=== PATIENT | male | born 1970 | race Asian ===

== ENCOUNTER 2019-03-19 20:37 | Inpatient (IN) | payer MEDICAID, OTHER ==
[~2019-03-19] VITALS: Ht 165.1 cm; Wt 75.6 kg
[2019-03-19] MEDS ORDERED: furosemide 10 MG/1 ML 10ml inj IV STA (20:49)
[2019-03-19] MEDS ORDERED: nitroGLYCERIN-Tridil 50MG/D5W 250 ML IV PRN (20:50)
--- NOTE | 2019-03-19 20:53 | NUR ---
RT present and placing him on bipap
[2019-03-19] MEDS ORDERED: LORazepam 2 mg/ml vial IV ONE (20:55)
[2019-03-19] MEDS ORDERED: furosemide 10 MG/1 ML 10ml inj IV ONE (21:00)
--- NOTE | 2019-03-19 21:02 | NUR ---
pt very anxious, pulling at the mask, MD ordered ativan. It was just given. telling him to relax. He is very paniking.
[2019-03-19] MEDS ORDERED: NO HOME MEDS (21:06)
[2019-03-19] MEDS ORDERED: albuterol 2.5 MG/3 ML nebule NEB STA (21:07)
[2019-03-19] MEDS ORDERED: ipratropium 0.5 MG/2.5ML nebule IH STA (21:07)
[2019-03-19] MEDS ORDERED: morphine 4 MG/ML inj SYRINge IV STA (21:07)
--- NOTE | 2019-03-19 21:08 | NUR ---
NTG increased to 60mcg/min per Dr Garber order at BS. Ordered Morphine 4 mg IV stat per Dr Garber VO and ordered a duoneb for RT stat.
--- NOTE | 2019-03-19 21:11 | NUR ---
at , she is holding his right hand so that he doesn't pull off his mask.
--- NOTE | 2019-03-19 21:13 | NUR ---
sticker oxygen sat placed as he kept moving and the clip on one kept falling off.
[2019-03-19 21:14] LABS: PARTIAL THROMBOPLASTIN TIME 31 SECONDS (22-32)
[2019-03-19 21:15] LABS: BASOPHILS % (AUTO) 0.1 % (0-1); EOSINOPHILS % (AUTO) 0.1 % (0-6); HEMATOCRIT 42.5 % (42.0-52.0); HEMOGLOBIN 14.7 g/dl (14.0-17.9); LYMPHOCYTES % (AUTO) 6.7 % (21-51); MEAN CORPUSCULAR HEMOGLOBIN 30.4 PG (27.0-31.0); MEAN CORPUSCULAR HGB CONC 34.5 g/dL (33.0-36.5); MEAN CORPUSCULAR VOLUME 88.1 FL (78-98); MEAN PLATELET VOLUME 7.3 FL (7.4-10.4); MONOCYTES # (AUTO) 1.4 X10'3 (0-0.9); MONOCYTES % (AUTO) 9.7 % (2-12); NEUTROPHILS % (AUTO) 83.4 % (42-75); PLATELET COUNT 469 X10'3 (140-440); RED BLOOD COUNT 4.82 X10'6 (4.70-6.10); RED CELL DISTRIBUTION WIDTH 13.1 % (11.5-14.5); WHITE BLOOD COUNT 14.4 X10'3 (4.5-11.0)
[2019-03-19 21:31] LABS: ALANINE AMINOTRANSFERASE 71 U/L (12-78); ALBUMIN 3.1 G/DL (3.4-5.0); ALBUMIN/GLOBULIN RATIO 0.7 (1.1-1.5); ALKALINE PHOSPHATASE 84 IU/L (46-116); ANION GAP 18 (8-16); ASPARTATE AMINO TRANSFERASE 56 U/L (10-37); BILIRUBIN,TOTAL 1.6 MG/DL (0.1-1.0); BLOOD UREA NITROGEN 6 MG/DL (7-18); BUN/CREATININE RATIO 7.1 (5.4-32.0); CALCIUM 8.3 MG/DL (8.5-10.1); CHLORIDE 79 MMOL/L (99-107); CREATININE 0.84 MG/DL (0.60-1.10); GLUCOSE 163 MG/DL (70-104); POTASSIUM 3.3 MMOL/L (3.5-5.1); TOTAL CARBON DIOXIDE 16.6 MMOL/L (24-32); TOTAL PROTEIN 7.4 G/DL (6.4-8.2); eGFR > 90 ML/MIN
[2019-03-19 21:35] LABS: SODIUM 114 MMOL/L (135-145)
[2019-03-19 21:43] LABS: MAGNESIUM 1.8 MG/DL (1.5-2.4)
[2019-03-19 22:14] LABS: CLARITY,URINE CLEAR (Clear); COLOR,URINE YELLOW (Yellow); GLUCOSE, URINE 100 mg/dl (Neg); KETONES,URINE >=80 mg/dl (Neg); LEUKOCYTE ESTERASE ,URINE NEGATIVE (Neg); NITRITES, URINE NEGATIVE (Neg); OCCULT BLOOD,URINE SMALL (Neg); PROTEIN,URINE 100 mg/dl (Neg)
[2019-03-19 22:15] LABS: UA COLLECTION TYPE FOLEY CATH
--- NOTE | 2019-03-19 22:16 | NUR ---
550ml output barrios catheter post 1 hour tata
[2019-03-19] MEDS ORDERED: acetaminophen 325mg tablet PO PRN (22:45)
[2019-03-19] MEDS ORDERED: mag hydrox/Alum hydrox/simeth 30ml oral suspension PO PRN (22:45)
[2019-03-19] MEDS ORDERED: ondansetron/PF 4mg/2ml inj IV PRN (22:45)
[2019-03-19] MEDS ORDERED: magnesium hydroxide 30ml (MOM) UD suspension PO PRN (22:45)
[2019-03-19] MEDS ORDERED: LORazepam 2 mg/ml vial IV PRN (22:50)
[2019-03-19] MEDS ORDERED: lisinopril 10 MG tablet PO ONE (22:50)
[2019-03-19] MEDS ORDERED: insulin Lispro (HumaLOG) vial - multi-dose SQ SCH (22:55)
[2019-03-19] MEDS ORDERED: dextrose 50%-water 50ml dispensing syringe IV PRN ×2 (22:55)
[2019-03-19] MEDS ORDERED: MESSAGE TO PHARMACY PO ONE (22:55)
[2019-03-19] MEDS ORDERED: glucagon, human recombinant 1mg kit SUBCUT PRN (22:55)
[2019-03-19] MEDS ORDERED: dextrose ORAL solution 15 GM/59 ML bottle PO PRN ×2 (22:55)
[2019-03-19 23:00] LABS: RBC,URINE 0-2 /HPF (0-2); WBC,URINE 0-4 /HPF (0-4)
[2019-03-19 23:01] LABS: BACTERIA,URINE NONE SEEN /HPF (Neg); FINE GRANULAR CAST 0-3 /LPF (NEGATIVE); MUCUS STRANDS FEW /LPF (Neg); SQUAMOUS EPITHELIAL CELL,UR NONE SEEN /LPF (FEW); TRANSITIONAL EPI CELLS,URINE MODERATE /HPF
[2019-03-19 23:10] VITALS: BP 151/116
[2019-03-19 23:46] LABS: ABG BASE EXCESS -5.9 mmol/L (-2.0-3.0); ABG HCO3 18.4 mmol/L (22.0-26.0); ABG OXYGEN SATURATION 90.7 % (95-98); ABG PCO2 (T) 32.5 mmHg (35.0-45.0); ABG PO2 (T) 61.5 mmHg (83-108); ALLEN'S TEST Positive; FCOHb 0.2 % (0.5-1.5); FLOW 6 L/min; FMetHb 0.2 % (0.3-1.12); FO2Hb 90.3 % (94-100); PATIENT TEMPERATURE 36.7; RESPIRATORY RATE (OBSERVED) 26 b/min; TOTAL HEMOGLOBIN 14.5 G/dl (14.0-17.9)
[2019-03-20] VITALS (17 sets, daily range): BP systolic 108–177; BP diastolic 66–106
[2019-03-20 00:09] LABS: HEMOGLOBIN A1C 8.4 % (4.5-6.2)
[2019-03-20 00:13] LABS: ALANINE AMINOTRANSFERASE 68 U/L (12-78); ALBUMIN 2.8 G/DL (3.4-5.0); ALBUMIN/GLOBULIN RATIO 0.7 (1.1-1.5); ALKALINE PHOSPHATASE 75 IU/L (46-116); ANION GAP 12 (8-16); ASPARTATE AMINO TRANSFERASE 51 U/L (10-37); BILIRUBIN,TOTAL 1.4 MG/DL (0.1-1.0); BLOOD UREA NITROGEN 7 MG/DL (7-18); BUN/CREATININE RATIO 7.5 (5.4-32.0); CALCIUM 7.5 MG/DL (8.5-10.1); CHLORIDE 82 MMOL/L (99-107); CREATININE 0.93 MG/DL (0.60-1.10); GLUCOSE 165 MG/DL (70-104); POTASSIUM 3.5 MMOL/L (3.5-5.1); TOTAL CARBON DIOXIDE 21.3 MMOL/L (24-32); TOTAL PROTEIN 6.9 G/DL (6.4-8.2); eGFR 86 ML/MIN
[2019-03-20 00:16] LABS: SODIUM 115 MMOL/L (135-145)
[2019-03-20 03:07] LABS: BASOPHILS % (AUTO) 0.1 % (0-1); EOSINOPHILS % (AUTO) 0.1 % (0-6); HEMATOCRIT 39.3 % (42.0-52.0); HEMOGLOBIN 13.7 g/dl (14.0-17.9); LYMPHOCYTES % (AUTO) 8.1 % (21-51); MEAN CORPUSCULAR HEMOGLOBIN 30.7 PG (27.0-31.0); MEAN CORPUSCULAR HGB CONC 34.8 g/dL (33.0-36.5); MEAN CORPUSCULAR VOLUME 88.2 FL (78-98); MEAN PLATELET VOLUME 7.1 FL (7.4-10.4); MONOCYTES # (AUTO) 1.2 X10'3 (0-0.9); MONOCYTES % (AUTO) 10.4 % (2-12); NEUTROPHILS # (AUTO) 9.7 X10'3 (1.8-7.7); NEUTROPHILS % (AUTO) 81.3 % (42-75); PLATELET COUNT 369 X10'3 (140-440); RED BLOOD COUNT 4.45 X10'6 (4.70-6.10); RED CELL DISTRIBUTION WIDTH 13.2 % (11.5-14.5); WHITE BLOOD COUNT 11.9 X10'3 (4.5-11.0)
[2019-03-20 03:25] LABS: ALANINE AMINOTRANSFERASE 61 U/L (12-78); ALBUMIN 2.6 G/DL (3.4-5.0); ALBUMIN/GLOBULIN RATIO 0.7 (1.1-1.5); ALKALINE PHOSPHATASE 69 IU/L (46-116); ANION GAP 9 (8-16); ASPARTATE AMINO TRANSFERASE 42 U/L (10-37); BILIRUBIN,TOTAL 1.3 MG/DL (0.1-1.0); BLOOD UREA NITROGEN 7 MG/DL (7-18); CALCIUM 7.6 MG/DL (8.5-10.1); CHLORIDE 86 MMOL/L (99-107); CHOL/HDL RATIO 4.1 (0.00-4.99); CHOLESTEROL 161 MG/DL (0-200); CREATININE 0.87 MG/DL (0.60-1.10); GLUCOSE 126 MG/DL (70-104); HDL CHOLESTEROL 39 MG/DL (35-60); LDL CHOLESTEROL 107 MG/DL (50-100); POTASSIUM 3.6 MMOL/L (3.5-5.1); TOTAL PROTEIN 6.4 G/DL (6.4-8.2); TRIGLYCERIDES 48 MG/DL (20-135); eGFR > 90 ML/MIN
[2019-03-20 03:27] LABS: SODIUM 119 MMOL/L (135-145)
--- NOTE | 2019-03-20 04:25 | NUR ---
[place] Medication Administration: For this medication-pass time frame, all medication were reviewed, dispensed, administered and documented per hospital policy by Arminda DAVIS. [facility] documentation: I have reviewed all interventions, assessments performed and documented by Arminda DAVIS.
--- NOTE | 2019-03-20 04:25 | NUR ---
Student documentation: I have reviewed and agree with all interventions, assessments performed and documented by Lynette FUNES. Student Medication Administration: For this medication-pass time frame, all medication were reviewed, dispensed, administered and documented per hospital policy by Lynette FUNES.
--- NOTE | 2019-03-20 06:07 | NUR ---
Problems reprioritized. Patient report given, questions answered & plan of care reviewed with Sherron DAVIS.
--- NOTE | 2019-03-20 07:08 | NUR ---
Patient in room PCU 3023. I have received report from SUSAN TRUONG and had the opportunity to ask questions and assume patient care.
[2019-03-20] MEDS ORDERED: furosemide 10 MG/1 ML 10ml inj IV SCH (08:00)
[2019-03-20] MEDS ORDERED: heparin, porcine 5000 units/ml vial SQ SCH (08:00)
[2019-03-20] MEDS: carvedilol 6.25mg tablet PO SCH ×2 (08:03→20:06)
[2019-03-20] MEDS ORDERED: pneumococcal 23-VAL P-sac vacc 25 mcg/0.5ml vial IMVAC ONE (10:00)
[2019-03-20] MEDS ORDERED: potassium Cl 20 mEq SR tablet PO PRN (10:50)
[2019-03-20] MEDS ORDERED: potassium CL 10mEq/100ml bag 100 ML IV PRN (10:50)
[2019-03-20] MEDS ORDERED: magnesium Cl slow-release 64mg tablet PO PRN (10:50)
[2019-03-20] MEDS ORDERED: magnesium 4gm in 100ml NS 100 ML IV PRN (10:50)
[2019-03-20] MEDS ORDERED: heparin 10,000 units/1 ML INJ IV PRN (11:00)
[2019-03-20] MEDS ORDERED: heparin 10,000 units/1 ML INJ IV ONE (11:00)
--- NOTE | 2019-03-20 11:02 | NUR ---
PAGED DR JENKINS promotional table spacer PAGER ID: [phone] MESSAGE: SHERRON PCU [id number] HAS HAD 2600ML URINE OUT THIS SHIFT. DO YOU WANT LASIX GTT? Addendum: 03/20/19 at 1104 by Sherron Dsouza RN PER DR JENKINS DO START LASIX GTT
[2019-03-20 12:00] LABS: BASOPHILS % (AUTO) 0.1 % (0-1); EOSINOPHILS % (AUTO) 0.1 % (0-6); HEMATOCRIT 39.4 % (42.0-52.0); HEMOGLOBIN 13.6 g/dl (14.0-17.9); LYMPHOCYTES # (AUTO) 0.6 X10'3 (1.1-4.8); LYMPHOCYTES % (AUTO) 4.6 % (21-51); MEAN CORPUSCULAR HEMOGLOBIN 30.5 PG (27.0-31.0); MEAN CORPUSCULAR HGB CONC 34.5 g/dL (33.0-36.5); MEAN CORPUSCULAR VOLUME 88.4 FL (78-98); MEAN PLATELET VOLUME 7.2 FL (7.4-10.4); MONOCYTES % (AUTO) 7.7 % (2-12); NEUTROPHILS # (AUTO) 10.8 X10'3 (1.8-7.7); NEUTROPHILS % (AUTO) 87.5 % (42-75); PLATELET COUNT 390 X10'3 (140-440); RED BLOOD COUNT 4.46 X10'6 (4.70-6.10); RED CELL DISTRIBUTION WIDTH 13.4 % (11.5-14.5); WHITE BLOOD COUNT 12.3 X10'3 (4.5-11.0)
[2019-03-20 12:01] LABS: PARTIAL THROMBOPLASTIN TIME 32 SECONDS (22-32)
[2019-03-20] MEDS: furosemide inj 100 MG in normal saline 100ml IV soln 90 ML IV SCH ×2 (12:07→20:06)
[2019-03-20] MEDS: heparin 25,000 UNIT/250ml bag 250 ML IV SCH ×2 (12:29→20:11)
--- NOTE | 2019-03-20 12:31 | NUR ---
DM consult: Pt with T2DM with A1c 8.4. Per PMH pt refuses to take DM medications. No past A1c lab to assess for changes at this time. BG 163 on admit, currently on glycemic protocol. Pt currently A/O x 3 and fatigued, would benefit from DM education prior to discharge once more stable. Pt with low serum Na 119 up from 114 at admit. Will continue to follow. Addendum: 03/20/19 at [address] Amended: Links added.
[2019-03-20] MEDS ORDERED: dicyclomine 10 MG capsule PO PRN (12:50)
[2019-03-20] MEDS ORDERED: loperamide 2mg capsule PO PRN (12:50)
[2019-03-20] MEDS ORDERED: mag hydrox/Alum hydrox/simeth 30ml oral suspension PO PRN (12:50)
[2019-03-20] MEDS ORDERED: thiamine inj. 100 MG in normal saline 100ml IV soln 100 ML IV ONE (12:50)
[2019-03-20] MEDS ORDERED: LORazepam 2 mg/ml vial IV PRN (12:50)
[2019-03-20] MEDS ORDERED: haloperidol lactate 5mg/ml inj IM PRN (12:50)
[2019-03-20] MEDS ORDERED: LORazepam 1 MG tablet PO PRN (12:50)
[2019-03-20] MEDS ORDERED: haloperidol 5mg tablet PO PRN (12:50)
[2019-03-20 13:27] LABS: URINE AMPHETAMINE SCREEN NEGATIVE (Neg); URINE BARBITUATE SCREEN NEGATIVE (Neg); URINE BENZODIAZEPINES SCREEN NEGATIVE (Neg); URINE CANNABINOID SCREEN NEGATIVE (Neg); URINE COCAINE SCREEN NEGATIVE (Neg); URINE METHADONE SCREEN NEGATIVE (Neg); URINE OPIATE SCREEN NEGATIVE (Neg); URINE PHENCYCLIDINE SCREEN NEGATIVE (Neg)
[2019-03-20] MEDS: scopolamine 1.5mg patch.TD72 TD SCH (13:45)
[2019-03-20] MEDS ORDERED: iohexol 300mg/ml 100ml inj. ONE (14:39)
[2019-03-20 15:20] LABS: HIV ANTIBODY 1&2 RAPID NON-REACTIVE (Neg)
--- NOTE | 2019-03-20 17:02 | NUR ---
PAGED DR JENKINS PAGER ID: [phone] MESSAGE: ALICE LAMB [id number] HAVE RESULTED
--- NOTE | 2019-03-20 18:49 | NUR ---
Problems reprioritized. Patient report given, questions answered & plan of care reviewed with SUSAN AARON AND SUSAN TRUONG.
--- NOTE | 2019-03-20 19:07 | NUR ---
Patient in room PCU 3023. I have received report from SUSAN Siu and had the opportunity to ask questions and assume patient care. Vital signs are stable at this time. Patient is awake in no apparent distress.
[2019-03-20] MEDS: levoFLOXACIN-Levaquin 750MG/D5 150 ML IV SCH (19:48)
[2019-03-20 20:56] LABS: ALBUMIN 2.3 G/DL (3.4-5.0); ANION GAP 10 (8-16); BLOOD UREA NITROGEN 7 MG/DL (7-18); BUN/CREATININE RATIO 7.9 (5.4-32.0); CHLORIDE 91 MMOL/L (99-107); CREATININE 0.89 MG/DL (0.60-1.10); GLUCOSE 155 MG/DL (70-104); MAGNESIUM 1.6 MG/DL (1.5-2.4); SODIUM 129 MMOL/L (135-145); TOTAL CARBON DIOXIDE 27.9 MMOL/L (24-32); eGFR 90 ML/MIN
[2019-03-20] MEDS: insulin glargine (Lantus) pen - multi-dose SQ SCH (21:00)
[2019-03-20 21:01] LABS: POTASSIUM 2.6 MMOL/L (3.5-5.1)
[2019-03-20] MEDS: potassium Cl 20 mEq SR tablet PO PRN (21:08)
[2019-03-21] VITALS (11 sets, daily range): BP systolic 100–120; BP diastolic 59–87
[2019-03-21] MEDS: potassium Cl 20 mEq SR tablet PO PRN ×5 (01:04→23:34)
[2019-03-21 02:24] LABS: BASOPHILS % (AUTO) 0.3 % (0-1); EOSINOPHILS % (AUTO) 0.4 % (0-6); HEMATOCRIT 36.7 % (42.0-52.0); HEMOGLOBIN 12.9 g/dl (14.0-17.9); LYMPHOCYTES # (AUTO) 1.2 X10'3 (1.1-4.8); LYMPHOCYTES % (AUTO) 13.1 % (21-51); MEAN CORPUSCULAR HEMOGLOBIN 30.8 PG (27.0-31.0); MEAN CORPUSCULAR HGB CONC 35.1 g/dL (33.0-36.5); MEAN CORPUSCULAR VOLUME 87.8 FL (78-98); MONOCYTES # (AUTO) 1.2 X10'3 (0-0.9); MONOCYTES % (AUTO) 13.2 % (2-12); NEUTROPHILS # (AUTO) 6.9 X10'3 (1.8-7.7); PLATELET COUNT 382 X10'3 (140-440); RED BLOOD COUNT 4.18 X10'6 (4.70-6.10); RED CELL DISTRIBUTION WIDTH 13.3 % (11.5-14.5); WHITE BLOOD COUNT 9.4 X10'3 (4.5-11.0)
[2019-03-21 02:34] LABS: ALANINE AMINOTRANSFERASE 49 U/L (12-78); ALBUMIN 2.3 G/DL (3.4-5.0); ALBUMIN/GLOBULIN RATIO 0.6 (1.1-1.5); ALKALINE PHOSPHATASE 59 IU/L (46-116); AMYLASE 26 U/L (25-115); ANION GAP 6 (8-16); ASPARTATE AMINO TRANSFERASE 28 U/L (10-37); BILIRUBIN,TOTAL 0.7 MG/DL (0.1-1.0); BLOOD UREA NITROGEN 8 MG/DL (7-18); BUN/CREATININE RATIO 8.8 (5.4-32.0); CALCIUM 7.8 MG/DL (8.5-10.1); CHLORIDE 94 MMOL/L (99-107); CREATININE 0.91 MG/DL (0.60-1.10); GLUCOSE 138 MG/DL (70-104); LIPASE 112 U/L (73-393); MAGNESIUM 1.6 MG/DL (1.5-2.4); PHOSPHORUS 2.9 MG/DL (2.3-4.5); SODIUM 133 MMOL/L (135-145); TOTAL CARBON DIOXIDE 32.8 MMOL/L (24-32); TOTAL PROTEIN 5.9 G/DL (6.4-8.2); eGFR 88 ML/MIN
[2019-03-21 02:43] LABS: POTASSIUM 2.7 MMOL/L (3.5-5.1)
[2019-03-21] MEDS: heparin 25,000 UNIT/250ml bag 250 ML IV SCH (03:00)
--- NOTE | 2019-03-21 06:15 | NUR ---
Patient in room PCU 3023. I have received report from Frieda DAVIS and had the opportunity to ask questions and assume patient care.
--- NOTE | 2019-03-21 06:26 | NUR ---
Problems reprioritized. Patient report given, questions answered & plan of care reviewed with Ashlyn RN & Ashlyn RN.
[2019-03-21] MEDS: furosemide inj 100 MG in normal saline 100ml IV soln 90 ML IV SCH (06:45)
--- NOTE | 2019-03-21 09:09 | NUR ---
Page sent to Dr. Red PAGER ID: [phone] MESSAGE: Re [address] [place] Pt continues on Lasix gtt, had 16,000 out yesterday. K+ 2.7 this am. No s/s of edema. Please advise. Thanks, Ashlyn [phone]
[2019-03-21] MEDS: carvedilol 6.25mg tablet PO SCH ×2 (09:31→20:40)
[2019-03-21] MEDS: multivitamins, therapeutics tablet PO SCH (09:31)
[2019-03-21] MEDS: folic acid 1mg tablet PO SCH (09:31)
[2019-03-21] MEDS: levoFLOXACIN-Levaquin 750MG/D5 150 ML IV SCH (09:31)
[2019-03-21] MEDS: thiamine 100mg tablet PO SCH (09:32)
[2019-03-21] MEDS: aspirin 81mg tablet.DR PO SCH (09:42)
[2019-03-21] MEDS ORDERED: magnesium 2GM in 50ml NS 50 ML IV ONE (10:05)
[2019-03-21] MEDS ORDERED: pneumococcal 23-VAL P-sac vacc 25 mcg/0.5ml vial IMVAC ONE (10:25)
[2019-03-21 10:29] LABS: ALBUMIN 2.4 G/DL (3.4-5.0); ANION GAP 5 (8-16); BLOOD UREA NITROGEN 7 MG/DL (7-18); BUN/CREATININE RATIO 7.7 (5.4-32.0); CALCIUM 7.9 MG/DL (8.5-10.1); CHLORIDE 95 MMOL/L (99-107); CREATININE 0.91 MG/DL (0.60-1.10); GLUCOSE 187 MG/DL (70-104); MAGNESIUM 1.6 MG/DL (1.5-2.4); PHOSPHORUS 2.9 MG/DL (2.3-4.5); POTASSIUM 3.3 MMOL/L (3.5-5.1); SODIUM 133 MMOL/L (135-145); TOTAL CARBON DIOXIDE 33.3 MMOL/L (24-32); eGFR 88 ML/MIN
--- NOTE | 2019-03-21 10:39 | NUR ---
CRITICAL LAB VALUE TAKEN FROM LAB, REPORTED TO PRIMARY RN.
[2019-03-21] MEDS: isosorbide mononitrate 30mg tab.SR.24H PO SCH (11:27)
[2019-03-21 14:11] LABS: ALBUMIN 2.4 G/DL (3.4-5.0); ANION GAP 5 (8-16); BLOOD UREA NITROGEN 9 MG/DL (7-18); BUN/CREATININE RATIO 8.3 (5.4-32.0); CALCIUM 8.6 MG/DL (8.5-10.1); CHLORIDE 94 MMOL/L (99-107); CREATININE 1.09 MG/DL (0.60-1.10); GLUCOSE 175 MG/DL (70-104); MAGNESIUM 1.8 MG/DL (1.5-2.4); PHOSPHORUS 3.1 MG/DL (2.3-4.5); POTASSIUM 3.9 MMOL/L (3.5-5.1); SODIUM 132 MMOL/L (135-145); TOTAL CARBON DIOXIDE 33.2 MMOL/L (24-32); eGFR 71 ML/MIN
--- NOTE | 2019-03-21 18:04 | NUR ---
Problems reprioritized. Patient report given, questions answered & plan of care reviewed with Alycia DAVIS. Patient stable at transfer of care.
--- NOTE | 2019-03-21 18:46 | NUR ---
Patient in room PCU 3023. I have received report from Ashlyn DAVIS and had the opportunity to ask questions and assume patient care.
[2019-03-21] MEDS: lactobacillus rhamnosus 10,000 MMU CELLS/CAPSULE PO SCH (20:40)
[2019-03-21] MEDS: furosemide 40mg/4ml inj IV SCH (20:40)
[2019-03-21] MEDS: insulin glargine (Lantus) pen - multi-dose SQ SCH (21:00)
[2019-03-22] VITALS (8 sets, daily range): BP systolic 102–139; BP diastolic 72–99
[2019-03-22 05:19] LABS: BASOPHILS % (AUTO) 0.4 % (0-1); EOSINOPHILS # (AUTO) 0.1 X10'3 (0-0.9); EOSINOPHILS % (AUTO) 0.9 % (0-6); HEMATOCRIT 37.6 % (42.0-52.0); HEMOGLOBIN 12.9 g/dl (14.0-17.9); LYMPHOCYTES # (AUTO) 1.4 X10'3 (1.1-4.8); MEAN CORPUSCULAR HEMOGLOBIN 30.5 PG (27.0-31.0); MEAN CORPUSCULAR HGB CONC 34.2 g/dL (33.0-36.5); MEAN CORPUSCULAR VOLUME 89.2 FL (78-98); MEAN PLATELET VOLUME 6.7 FL (7.4-10.4); MONOCYTES # (AUTO) 1.3 X10'3 (0-0.9); MONOCYTES % (AUTO) 14.8 % (2-12); NEUTROPHILS % (AUTO) 67.9 % (42-75); PLATELET COUNT 418 X10'3 (140-440); RED BLOOD COUNT 4.21 X10'6 (4.70-6.10); WHITE BLOOD COUNT 8.8 X10'3 (4.5-11.0)
[2019-03-22 05:33] LABS: ALANINE AMINOTRANSFERASE 43 U/L (12-78); ALBUMIN 2.5 G/DL (3.4-5.0); ALBUMIN/GLOBULIN RATIO 0.6 (1.1-1.5); ALKALINE PHOSPHATASE 58 IU/L (46-116); AMYLASE 37 U/L (25-115); ANION GAP 5 (8-16); ASPARTATE AMINO TRANSFERASE 22 U/L (10-37); BILIRUBIN,TOTAL 0.5 MG/DL (0.1-1.0); BLOOD UREA NITROGEN 8 MG/DL (7-18); BUN/CREATININE RATIO 9.6 (5.4-32.0); CALCIUM 8.8 MG/DL (8.5-10.1); CHLORIDE 97 MMOL/L (99-107); CREATININE 0.83 MG/DL (0.60-1.10); GLUCOSE 137 MG/DL (70-104); LIPASE 181 U/L (73-393); MAGNESIUM 2.1 MG/DL (1.5-2.4); PHOSPHORUS 3.4 MG/DL (2.3-4.5); POTASSIUM 3.7 MMOL/L (3.5-5.1); SODIUM 134 MMOL/L (135-145); TOTAL CARBON DIOXIDE 31.9 MMOL/L (24-32); TOTAL PROTEIN 6.5 G/DL (6.4-8.2); eGFR > 90 ML/MIN
--- NOTE | 2019-03-22 06:16 | NUR ---
Problems reprioritized. Patient report given, questions answered & plan of care reviewed with Ashlyn DAVIS.
--- NOTE | 2019-03-22 06:19 | NUR ---
Patient in room PCU 3023. I have received report from SUSAN Tong and had the opportunity to ask questions and assume patient care.
[2019-03-22] MEDS: folic acid 1mg tablet PO SCH (07:45)
[2019-03-22] MEDS: lactobacillus rhamnosus 10,000 MMU CELLS/CAPSULE PO SCH ×2 (07:45→19:38)
[2019-03-22] MEDS: thiamine 100mg tablet PO SCH (07:45)
[2019-03-22] MEDS: carvedilol 6.25mg tablet PO SCH ×2 (07:45→19:38)
[2019-03-22] MEDS: furosemide 40mg/4ml inj IV SCH ×2 (07:45→19:39)
[2019-03-22] MEDS: atorvastatin 10mg tablet PO SCH (07:45)
[2019-03-22] MEDS: multivitamins, therapeutics tablet PO SCH (07:46)
[2019-03-22] MEDS: isosorbide mononitrate 30mg tab.SR.24H PO SCH (07:46)
[2019-03-22] MEDS ORDERED: pneumococcal 23-VAL P-sac vacc 25 mcg/0.5ml vial IMVAC ONE (12:00)
[2019-03-22] MEDS: aspirin 81mg tablet.DR PO SCH (12:54)
[2019-03-22] MEDS: enoxaparin 40mg/0.4ml syringe SUBCUT SCH (12:55)
[2019-03-22] MEDS: levoFLOXACIN 750MG TABLET PO SCH (12:55)
--- NOTE | 2019-03-22 18:38 | NUR ---
Problems reprioritized. Patient report given, questions answered & plan of care reviewed with Alycia DAVIS. Patient stable at transfer of care.
[2019-03-22] MEDS: insulin glargine (Lantus) pen - multi-dose SQ SCH (21:00)
[2019-03-23 03:31] VITALS: BP 131/98
[2019-03-23 05:39] LABS: BASOPHILS % (AUTO) 0.5 % (0-1); EOSINOPHILS # (AUTO) 0.1 X10'3 (0-0.9); EOSINOPHILS % (AUTO) 1.5 % (0-6); HEMATOCRIT 39.1 % (42.0-52.0); HEMOGLOBIN 13.5 g/dl (14.0-17.9); LYMPHOCYTES # (AUTO) 1.9 X10'3 (1.1-4.8); LYMPHOCYTES % (AUTO) 20.7 % (21-51); MEAN CORPUSCULAR HEMOGLOBIN 30.6 PG (27.0-31.0); MEAN CORPUSCULAR HGB CONC 34.4 g/dL (33.0-36.5); MEAN CORPUSCULAR VOLUME 88.8 FL (78-98); MEAN PLATELET VOLUME 6.8 FL (7.4-10.4); MONOCYTES # (AUTO) 1.2 X10'3 (0-0.9); MONOCYTES % (AUTO) 12.8 % (2-12); NEUTROPHILS # (AUTO) 5.8 X10'3 (1.8-7.7); NEUTROPHILS % (AUTO) 64.5 % (42-75); PLATELET COUNT 460 X10'3 (140-440); RED BLOOD COUNT 4.41 X10'6 (4.70-6.10); RED CELL DISTRIBUTION WIDTH 13.2 % (11.5-14.5)
[2019-03-23 05:58] LABS: ALANINE AMINOTRANSFERASE 43 U/L (12-78); ALBUMIN 2.7 G/DL (3.4-5.0); ALBUMIN/GLOBULIN RATIO 0.6 (1.1-1.5); ALKALINE PHOSPHATASE 62 IU/L (46-116); AMYLASE 45 U/L (25-115); ANION GAP 10 (8-16); ASPARTATE AMINO TRANSFERASE 20 U/L (10-37); BILIRUBIN,TOTAL 0.5 MG/DL (0.1-1.0); BLOOD UREA NITROGEN 14 MG/DL (7-18); BUN/CREATININE RATIO 14.1 (5.4-32.0); CALCIUM 9.3 MG/DL (8.5-10.1); CHLORIDE 97 MMOL/L (99-107); CREATININE 0.99 MG/DL (0.60-1.10); GLUCOSE 151 MG/DL (70-104); LIPASE 205 U/L (73-393); PHOSPHORUS 5.5 MG/DL (2.3-4.5); POTASSIUM 3.8 MMOL/L (3.5-5.1); SODIUM 136 MMOL/L (135-145); TOTAL PROTEIN 7.1 G/DL (6.4-8.2); eGFR 80 ML/MIN
--- NOTE | 2019-03-23 06:10 | NUR ---
Problems reprioritized. Patient report given, questions answered & plan of care reviewed with Ashlyn DAVIS.
--- NOTE | 2019-03-23 06:15 | NUR ---
Patient in room PCU 3023. I have received report from SUSAN Tong and had the opportunity to ask questions and assume patient care.
[2019-03-23 07:08] VITALS: BP 151/95
[2019-03-23] MEDS: furosemide 40mg/4ml inj IV SCH (08:15)
[2019-03-23] MEDS: atorvastatin 10mg tablet PO SCH (08:16)
[2019-03-23] MEDS: thiamine 100mg tablet PO SCH (08:16)
[2019-03-23] MEDS: isosorbide mononitrate 30mg tab.SR.24H PO SCH (08:16)
[2019-03-23] MEDS: aspirin 81mg tablet.DR PO SCH (08:16)
[2019-03-23] MEDS: enoxaparin 40mg/0.4ml syringe SUBCUT SCH (08:16)
[2019-03-23] MEDS: carvedilol 6.25mg tablet PO SCH (08:16)
[2019-03-23] MEDS: folic acid 1mg tablet PO SCH (08:22)
[2019-03-23] MEDS: lactobacillus rhamnosus 10,000 MMU CELLS/CAPSULE PO SCH (08:22)
[2019-03-23] MEDS: multivitamins, therapeutics tablet PO SCH (08:22)
[2019-03-23 08:35] LABS: HBSAG SCREEN Negative (Negative); HEP A AB, IGM Negative (Negative); HEP B CORE AB, IGM Negative (Negative); HEPATITIS C ANTIBODY <0.1 s/co ratio (0.0-0.9)
[2019-03-23] MEDS ORDERED: pneumococcal 23-VAL P-sac vacc 25 mcg/0.5ml vial IMVAC ONE (09:00)
[2019-03-23 11:00] VITALS: BP 104/76
[2019-03-23] MEDS ORDERED: ATOR10TA PO (11:33)
[2019-03-23] MEDS ORDERED: ASPI-1071 PO (11:33)
[2019-03-23] MEDS ORDERED: FOLI1TAB16 PO (11:33)
[2019-03-23] MEDS ORDERED: MULT-1179 PO (11:33)
[2019-03-23] MEDS ORDERED: SITA100T11 PO (11:33)
[2019-03-23] MEDS ORDERED: ISOS30TA6 PO (11:33)
[2019-03-23] MEDS ORDERED: POTA10TA36 PO (11:33)
[2019-03-23] MEDS ORDERED: CARV6.253 PO (11:33)
[2019-03-23] MEDS ORDERED: thiamine tablet PO (11:33)
[2019-03-23] MEDS ORDERED: METF-950 PO (11:33)
[2019-03-23] MEDS ORDERED: LACT1CAP26 PO (11:33)
[2019-03-23] MEDS ORDERED: LEVO750T46 PO (11:33)
[2019-03-23] MEDS ORDERED: FURO-150 PO (11:33)
[2019-03-23] MEDS ORDERED: LISI10TA4 PO (11:34)
[2019-03-23] MEDS: scopolamine 1.5mg patch.TD72 TD SCH (12:50)
[2019-03-23] MEDS: levoFLOXACIN 750MG TABLET PO SCH (12:58)
--- NOTE | 2019-03-23 15:11 | NUR ---
Initial: Pt admit w/ SOB hx refusal to take any meds or go to MD for years. Mentation improved to AOx4 though pt does report some memory haziness at this time. Pt seen by RD and declined verbal DM ed; written DM ed along w/ RD contact information and CDE course encouragement provided. PO 75-100% meals meeting needs. LBM 03/19. No nutrition concerns at this time. Will continue to monitor. Rec: 1. continue carb controlled diet 2. thiamin/folic/MVI for etoh per MD 3. wt per rx Addendum: 03/23/19 at [address] Amended: Links added.
--- NOTE | 2019-03-23 16:58 | NUR ---
Patient discharged at 1650 home with . Patient and reviewed discharge education/instructions/medications before signing. Patient was educated by case management about MD that would be available to contact to establish a PCP and was given phone numbers for contacting PCP. Patient was also educated about the importance of monitoring diabetes and medication compliance. Patient and were given several handouts regarding all education pertaining to the patient and his comorbidities. Patient and had the opportunity to ask questions regarding all education, and were also educated on Physical Therapy's recommendation for the patient to not drive at this time. PIV was removed with catheter intact and Telemetry monitoring was d/c'd. [facility] [address] Patient was wheeled down by staff and left via private vehicle with .
== END 2019-03-23 16:56 | disposition home or self-care (01) | DRG 280 ==
LOC: ER 20:38 → PCU 3S 23:16
PROVIDERS: ADMIT Internal Medicine; ATTEND Family Medicine
PROC: 5A09357 Assistance with Respiratory Ventilation, Less than 24 Consecutive Hours, Continuous Positive Airway Pressure (ICD-10-PCS; principal; 2019-03-19)
PROC: B32T1ZZ Computerized Tomography (CT Scan) of Left Pulmonary Artery using Low Osmolar Contrast (ICD-10-PCS; 2019-03-20)
PROC: B3201ZZ Computerized Tomography (CT Scan) of Thoracic Aorta using Low Osmolar Contrast (ICD-10-PCS; 2019-03-20)
PROC: B32S1ZZ Computerized Tomography (CT Scan) of Right Pulmonary Artery using Low Osmolar Contrast (ICD-10-PCS; 2019-03-20)
PROC: 0WJ93ZZ Inspection of Right Pleural Cavity, Percutaneous Approach (ICD-10-PCS; 2019-03-22)
PROC: 3E0234Z Introduction of Serum, Toxoid and Vaccine into Muscle, Percutaneous Approach (ICD-10-PCS; 2019-03-23)
DX: I21.4 Non-ST elevation (NSTEMI) myocardial infarction (principal); E43 Unspecified severe protein-calorie malnutrition; I50.41 Acute combined systolic (congestive) and diastolic (congestive) heart failure; J96.00 Acute respiratory failure, unspecified whether with hypoxia or hypercapnia; J18.9 Pneumonia, unspecified organism; E87.1 Hypo-osmolality and hyponatremia; I16.1 Hypertensive emergency; J90 Pleural effusion, not elsewhere classified; E11.9 Type 2 diabetes mellitus without complications; E78.5 Hyperlipidemia, unspecified; E87.6 Hypokalemia; F10.10 Alcohol abuse, uncomplicated; F17.210 Nicotine dependence, cigarettes, uncomplicated; I11.0 Hypertensive heart disease with heart failure; Z79.899 Other long term (current) drug therapy; Z91.19 Patient's noncompliance with other medical treatment and regimen; Z23 Encounter for immunization; Z68.27 Body mass index [BMI] 27.0-27.9, adult; Z71.41 Alcohol abuse counseling and surveillance of alcoholic; Z71.6 Tobacco abuse counseling
CPT/HCPCS: 32555; 36415; 36600; 71045; 71275; 74177; 76700; 80053; 80061; 80069; 80305; 81001; 82140; 82150; 82803; 82948; 83036; 83605; 83690; 83735; 83880; 84100; 84145; 84484; 85018; 85025; 85610; 85730; 86703; 86705; 86706; 86709; 86803; 87040; 87081; 87340; 90732; 93005; 93306; 94640; 94660; 94760; 96365; 96375; 97110; 97116; 97161; 97530; 99285; G0378; J1644; J1650; J1815; J1940; J1956; J2060; J2270; J2405; J3411; J3475; J3490; Q9967

== ENCOUNTER 2019-04-26 14:09 | Inpatient (IN) | payer MEDICAID ==
[~2019-04-26] VITALS: Ht 160 cm; Wt 73.0 kg
[~2019-04-26 14:09] MED LIST: ASPI-1071 PO; ATOR10TA PO; CARV6.253 PO; FOLI1TAB16 PO; FURO-150 PO; ISOS30TA6 PO; LACT1CAP26 PO; LEVO750T46 PO; LISI10TA4 PO; MULT-1179 PO; POTA10TA36 PO; SITA100T11 PO; thiamine tablet PO
--- NOTE | 2019-04-26 14:29 | NUR ---
BROUGHT IN BY EMS FOR CONFUSION FOR UNKNOW AMOUNT OF TIME FAMILY REPORT THAT HE HAS BEEN CONFUSED ALL DAY
[2019-04-26 15:30] LABS: EOSINOPHILS % (AUTO) 0.2 % (0-6); NEUTROPHILS # (AUTO) 8.1 X10'3 (1.8-7.7); WHITE BLOOD COUNT 10.8 X10'3 (4.5-11.0)
[2019-04-26] MEDS ORDERED: normal saline 1000ML IV soln IV ONE (15:30)
[2019-04-26 15:32] LABS: BASOPHILS % (AUTO) 0.2 % (0-1); HEMATOCRIT 39.2 % (42.0-52.0); HEMOGLOBIN 13.6 g/dl (14.0-17.9); LYMPHOCYTES # (AUTO) 1.4 X10'3 (1.1-4.8); LYMPHOCYTES % (AUTO) 12.6 % (21-51); MEAN CORPUSCULAR HEMOGLOBIN 29.1 PG (27.0-31.0); MEAN CORPUSCULAR HGB CONC 34.6 g/dL (33.0-36.5); MEAN CORPUSCULAR VOLUME 84.2 FL (78-98); MEAN PLATELET VOLUME 7.1 FL (7.4-10.4); MONOCYTES # (AUTO) 1.3 X10'3 (0-0.9); PLATELET COUNT 317 X10'3 (140-440); RED BLOOD COUNT 4.66 X10'6 (4.70-6.10); RED CELL DISTRIBUTION WIDTH 13.8 % (11.5-14.5)
[2019-04-26 15:46] LABS: ALANINE AMINOTRANSFERASE 43 U/L (12-78); ALBUMIN/GLOBULIN RATIO 0.6 (1.1-1.5); ALKALINE PHOSPHATASE 69 IU/L (46-116); ANION GAP 10 (8-16); ASPARTATE AMINO TRANSFERASE 135 U/L (10-37); BILIRUBIN,TOTAL 1.3 MG/DL (0.1-1.0); BLOOD UREA NITROGEN 17 MG/DL (7-18); BUN/CREATININE RATIO 16.8 (5.4-32.0); CALCIUM 8.5 MG/DL (8.5-10.1); CHLORIDE 86 MMOL/L (99-107); CREATININE 1.01 MG/DL (0.60-1.10); GLUCOSE 254 MG/DL (70-104); POTASSIUM 3.9 MMOL/L (3.5-5.1); SODIUM 123 MMOL/L (135-145); TOTAL CARBON DIOXIDE 27.4 MMOL/L (24-32); TOTAL PROTEIN 7.7 G/DL (6.4-8.2); eGFR 78 ML/MIN
[2019-04-26 15:55] LABS: ETHANOL < 0.010 GM/DL (0.0-0.010); TROPONIN I 34.07 NG/ML (0.0-0.05)
[2019-04-26] MEDS ORDERED: aspirin 81mg tab.chew PO ONE (16:00)
[2019-04-26] MEDS ORDERED: heparin 10,000 units/1 ML INJ IV ONE ×2 (16:00→16:05)
[2019-04-26] MEDS: heparin 25,000 UNIT/250ml bag 250 ML IV SCH (16:13)
--- NOTE | 2019-04-26 16:15 | NUR ---
heprin drip started
[2019-04-26] MEDS ORDERED: normal saline 1000ml 1,000 ML IV SCH (16:27)
[2019-04-26] MEDS ORDERED: acetaminophen 325mg tablet PO PRN (16:30)
[2019-04-26] MEDS ORDERED: thiamine 100mg/ml 2ml inj. IV ONE (16:30)
[2019-04-26] MEDS ORDERED: morphine 2 MG/ML inj. syringe IV PRN (16:30)
[2019-04-26] MEDS ORDERED: dextrose 50%-water 50ml dispensing syringe IV PRN (16:30)
[2019-04-26] MEDS ORDERED: mag hydrox/Alum hydrox/simeth 30ml oral suspension PO PRN (16:30)
[2019-04-26] MEDS ORDERED: ondansetron/PF 4mg/2ml inj IV PRN (16:30)
[2019-04-26] MEDS ORDERED: magnesium hydroxide 30ml (MOM) UD suspension PO PRN (16:30)
[2019-04-26] MEDS ORDERED: LORazepam 2 mg/ml vial IV PRN (16:30)
[2019-04-26] MEDS ORDERED: THIA100T66 PO (16:37)
[2019-04-26] MEDS ORDERED: LEVO750T46 PO (16:41)
[2019-04-26] MEDS ORDERED: LISI10TA4 PO (16:41)
[2019-04-26] MEDS ORDERED: MULT-1074 PO (16:41)
[2019-04-26] MEDS ORDERED: METF-436 PO (16:41)
[2019-04-26] MEDS ORDERED: LACTC PO (16:41)
[2019-04-26] MEDS ORDERED: POTA10TA36 PO (16:41)
[2019-04-26] MEDS ORDERED: SITA100T11 PO (16:41)
[2019-04-26] MEDS ORDERED: ASPI81TA49 PO (16:46)
[2019-04-26] MEDS ORDERED: CARV6.252 PO (16:46)
[2019-04-26] MEDS ORDERED: FURO-150 PO (16:46)
[2019-04-26] MEDS ORDERED: ISOS30TA6 PO (16:46)
[2019-04-26] MEDS ORDERED: FOLI0.8T PO (16:46)
[2019-04-26] MEDS ORDERED: ATOR10TA PO (16:46)
[2019-04-26] MEDS ORDERED: CARV-50 PO (17:07)
[2019-04-26] MEDS ORDERED: ZAR2.5T PO (17:09)
[2019-04-26] MEDS ORDERED: iohexol 350MG/ML 100ml bottle IV ONE (17:41)
--- NOTE | 2019-04-26 17:41 | NUR ---
Patient in room ED 6. I have received report from SUSAN Spears and had the opportunity to ask questions. Awaiting pt's arrival to ACCE room 313.
--- NOTE | 2019-04-26 17:44 | NUR ---
report called all questions answered transproted to ct for test then will be taken to floor
--- NOTE | 2019-04-26 17:58 | NUR ---
Pt arrived via gurney from ED. Pt assisted in to bed without difficulty, monitor applied, vital signs obtained. Family at bedside, call light within reach, bed low/locked.
[2019-04-26 18:00] VITALS: BP 103/71
--- NOTE | 2019-04-26 18:08 | NUR ---
Problems reprioritized. Patient report given, questions answered & plan of care reviewed with SUSAN Sage.
[2019-04-26] MEDS: MESSAGE TO NURSING PO NR (18:16)
--- NOTE | 2019-04-26 19:06 | NUR ---
PAGER ID: [phone] MESSAGE: 313 pt Chowb. Admit NSTEMI, initial trop 34.07, no series ordered. Would you like the trop series? Serum glucose 254 with hx of DM, want ACHS? BNP 10,531, want a diuretic? Thank you! - Mer[facility] [phone]
[2019-04-26] MEDS: potassium chloride 10mEq ER tablet PO SCH (19:29)
[2019-04-26] MEDS: pantoprazole 40 MG vial IV SCH (19:29)
[2019-04-26 20:15] LABS: CLARITY,URINE CLEAR (Clear); COLOR,URINE YELLOW (Yellow); GLUCOSE, URINE NEGATIVE (Neg); KETONES,URINE NEGATIVE (Neg); LEUKOCYTE ESTERASE ,URINE NEGATIVE (Neg); NITRITES, URINE NEGATIVE (Neg); OCCULT BLOOD,URINE NEGATIVE (Neg); PROTEIN,URINE NEGATIVE (Neg); UROBILINOGEN,URINE 0.2 E.U/dL (0.2-1.0)
[2019-04-26 20:17] LABS: UA COLLECTION TYPE URINAL
[2019-04-26 20:25] LABS: URINE AMPHETAMINE SCREEN NEGATIVE (Neg); URINE BARBITUATE SCREEN NEGATIVE (Neg); URINE BENZODIAZEPINES SCREEN NEGATIVE (Neg); URINE CANNABINOID SCREEN NEGATIVE (Neg); URINE COCAINE SCREEN NEGATIVE (Neg); URINE METHADONE SCREEN NEGATIVE (Neg); URINE OPIATE SCREEN NEGATIVE (Neg); URINE PHENCYCLIDINE SCREEN NEGATIVE (Neg)
[2019-04-26] MEDS ORDERED: thiamine inj. 100 MG in normal saline 100ml IV soln 100 ML IV ONE (20:35)
[2019-04-26 22:00] VITALS: BP 96/69
--- NOTE | 2019-04-26 22:06 | NUR ---
called Dr. Arteaga and informed him regarding the patient's troponing being 34.07, 32.09 and 31.16. He acknowledged the results but didn't order anything except the robitissum 10 ml po q2hr prn. No other orders were given at this time.
[2019-04-26] MEDS: guaiFENesin/DM 10ml UD oral syrup PO PRN (22:46)
[2019-04-27] MEDS: guaiFENesin/DM 10ml UD oral syrup PO PRN ×2 (00:57→20:35)
[2019-04-27 02:00] VITALS: BP 102/62
--- NOTE | 2019-04-27 04:45 | NUR ---
unable to do the am blood draw. Lab is notified and in route for blood draw for cardiac ptt and troponin. Charge Nurse Krysten is aware of the issue.
[2019-04-27 05:28] LABS: BASOPHILS % (AUTO) 0.1 % (0-1); EOSINOPHILS % (AUTO) 0.1 % (0-6); HEMOGLOBIN 12.5 g/dl (14.0-17.9); LYMPHOCYTES # (AUTO) 1.3 X10'3 (1.1-4.8); LYMPHOCYTES % (AUTO) 18.1 % (21-51); MEAN CORPUSCULAR HEMOGLOBIN 29.3 PG (27.0-31.0); MEAN CORPUSCULAR HGB CONC 34.8 g/dL (33.0-36.5); MEAN CORPUSCULAR VOLUME 84.3 FL (78-98); MEAN PLATELET VOLUME 7.5 FL (7.4-10.4); MONOCYTES # (AUTO) 1.1 X10'3 (0-0.9); MONOCYTES % (AUTO) 15.3 % (2-12); NEUTROPHILS # (AUTO) 4.9 X10'3 (1.8-7.7); NEUTROPHILS % (AUTO) 66.4 % (42-75); PLATELET COUNT 240 X10'3 (140-440); RED BLOOD COUNT 4.27 X10'6 (4.70-6.10); RED CELL DISTRIBUTION WIDTH 13.7 % (11.5-14.5); WHITE BLOOD COUNT 7.3 X10'3 (4.5-11.0)
[2019-04-27 05:46] LABS: ANION GAP 13 (8-16); BLOOD UREA NITROGEN 21 MG/DL (7-18); BUN/CREATININE RATIO 19.1 (5.4-32.0); CHLORIDE 90 MMOL/L (99-107); GLUCOSE 243 MG/DL (70-104); POTASSIUM 3.4 MMOL/L (3.5-5.1); SODIUM 126 MMOL/L (135-145); TOTAL CARBON DIOXIDE 23.3 MMOL/L (24-32); eGFR 71 ML/MIN
[2019-04-27 06:11] LABS: TROPONIN I 28.98 NG/ML (0.0-0.05)
--- NOTE | 2019-04-27 06:13 | NUR ---
Patient in room MED 313. I have received report from SUSAN Sage and had the opportunity to ask questions and assume patient care.
[2019-04-27] MEDS: atorvastatin 10mg tablet PO SCH (07:42)
[2019-04-27] MEDS: aspirin 81mg tablet.DR PO SCH (07:42)
[2019-04-27] MEDS: potassium chloride 10mEq ER tablet PO SCH ×2 (07:42→20:25)
[2019-04-27] MEDS: pantoprazole 40 MG vial IV SCH (07:42)
[2019-04-27] MEDS: thiamine 100mg tablet PO SCH (07:43)
[2019-04-27] MEDS ORDERED: lisinopril 10 MG tablet PO SCH (08:00)
--- NOTE | 2019-04-27 08:43 | NUR ---
Paged Dr. Archuleta regarding hyperglycemia protocol. PAGER ID: [phone] MESSAGE: Rm. 313. Chowb. Patient's BG was 264 this morning and met protocol. Would you like to start them on the hyperglycemia protocol? Thanks. Willa DAVIS x [phone]
[2019-04-27] MEDS: MESSAGE TO NURSING PO NR (10:40)
[2019-04-27] MEDS: clopidogrel 75mg tablet PO SCH (10:50)
[2019-04-27 11:00] VITALS: BP 111/85
[2019-04-27] MEDS ORDERED: dextrose 50%-water 50ml dispensing syringe IV PRN ×2 (11:05)
[2019-04-27] MEDS ORDERED: dextrose ORAL solution 15 GM/59 ML bottle PO PRN ×2 (11:05)
[2019-04-27] MEDS ORDERED: glucagon, human recombinant 1mg kit SUBCUT PRN (11:05)
[2019-04-27] MEDS: heparin 25,000 UNIT/250ml bag 250 ML IV SCH ×2 (12:57→17:48)
--- NOTE | 2019-04-27 13:28 | NUR ---
Paged Dr. Archuleta regarding starting patient's diet. PAGER ID: [phone] MESSAGE: Rm 313. Chowfredy. Can you put in a diet order so that he can eat? Thanks. Willa DAVIS x [phone]
[2019-04-27] MEDS ORDERED: furosemide 20 MG/2 ML vial IV ONE (14:25)
--- NOTE | 2019-04-27 14:31 | NUR ---
PAGED CHRISTY ON STROKE TEAM PER DR. HSIEH'S REQUEST "DR. HSIEH WOULD LIKE YOU TO SEE PATIENT IN 313 [place]. THANK YOU, JANELL VEE [phone]"
[2019-04-27 15:00] VITALS: BP 116/87
--- NOTE | 2019-04-27 15:46 | NUR ---
Paged Dr. Archuleta regarding a diet order. PAGER ID: [phone] MESSAGE: Rm 313. Chowb. Can we order him a diet? Thank you. Willa DAVIS x [phone]
[2019-04-27 18:00] VITALS: BP 108/81
--- NOTE | 2019-04-27 18:05 | NUR ---
Problems reprioritized. Patient report given, questions answered & plan of care reviewed with SUSAN Sage.
--- NOTE | 2019-04-27 18:08 | NUR ---
[place] documentation: I have reviewed and agree with all interventions, assessments performed and documented by Willa DAVIS. [facility] Medication Administration: For this medication-pass time frame, all medication were reviewed, dispensed, administered and documented per hospital policy by Willa DAVIS.
--- NOTE | 2019-04-27 19:02 | NUR ---
PAGER ID: [phone] MESSAGE: [facility] room 313, Neurologist saw the patient and recommend bilateral carotid ultrasound, treating the hyponatremia. No other order/recommendations were given. Ruben. ACCE--[id number]
[2019-04-27] MEDS: furosemide 20 MG/2 ML vial IV SCH (20:25)
[2019-04-27] MEDS: insulin glargine (Lantus) pen - multi-dose SQ SCH (20:50)
--- NOTE | 2019-04-27 21:00 | NUR ---
Called Dr. Arteaga and informed him regarding the Neurological consult recommendation to do bilateral carotid ultrasound and managing the patient's hypontaremia being 126. He was also informed regarding his troponin being in 30's and high PBNP. He ordered 1500cc fluid restriction and putting the order for bilateral carotid ultrasound which is the Neurologist recommendation. No other orders were given at this time.
[2019-04-27 22:00] VITALS: BP 127/95
[2019-04-28] MEDS: guaiFENesin/DM 10ml UD oral syrup PO PRN (01:04)
[2019-04-28 02:00] VITALS: BP 101/79
[2019-04-28 02:35] LABS: BASOPHILS % (AUTO) 0.1 % (0-1); EOSINOPHILS % (AUTO) 0 % (0-6); HEMATOCRIT 37.9 % (42.0-52.0); MEAN CORPUSCULAR HEMOGLOBIN 29.1 PG (27.0-31.0); MEAN CORPUSCULAR HGB CONC 34.5 g/dL (33.0-36.5); MEAN CORPUSCULAR VOLUME 84.3 FL (78-98); MEAN PLATELET VOLUME 7.4 FL (7.4-10.4); MONOCYTES # (AUTO) 1.4 X10'3 (0-0.9); NEUTROPHILS # (AUTO) 3.5 X10'3 (1.8-7.7); NEUTROPHILS % (AUTO) 50.9 % (42-75); PLATELET COUNT 256 X10'3 (140-440); RED BLOOD COUNT 4.49 X10'6 (4.70-6.10); RED CELL DISTRIBUTION WIDTH 14.2 % (11.5-14.5); WHITE BLOOD COUNT 6.9 X10'3 (4.5-11.0)
[2019-04-28 02:42] LABS: ALBUMIN 3.4 G/DL (3.4-5.0); ANION GAP 9 (8-16); BLOOD UREA NITROGEN 28 MG/DL (7-18); BUN/CREATININE RATIO 20.9 (5.4-32.0); CALCIUM 8.4 MG/DL (8.5-10.1); CHLORIDE 91 MMOL/L (99-107); CREATININE 1.34 MG/DL (0.60-1.10); GLUCOSE 215 MG/DL (70-104); POTASSIUM 3.2 MMOL/L (3.5-5.1); SODIUM 127 MMOL/L (135-145); TOTAL CARBON DIOXIDE 26.7 MMOL/L (24-32); eGFR 56 ML/MIN
[2019-04-28 04:15] LABS: PLATELET ESTIMATE NORMAL; TOTAL CELLS COUNTED 100
[2019-04-28] MEDS ORDERED: potassium Cl 20 mEq SR tablet PO PRN ×2 (04:35)
[2019-04-28] MEDS ORDERED: potassium CL 10mEq/100ml bag 100 ML IV PRN (04:35)
[2019-04-28] MEDS: potassium CL 10mEq/100ml bag 100 ML IV PRN (05:40)
[2019-04-28 06:00] VITALS: BP 107/85
--- NOTE | 2019-04-28 06:37 | NUR ---
Problems reprioritized. Patient report given, questions answered & plan of care reviewed with SUSAN Moore.
--- NOTE | 2019-04-28 06:51 | NUR ---
Patient in room MED 313. I have received report from SUSAN Barrow and had the opportunity to ask questions and assume patient care.
[2019-04-28] MEDS: furosemide 20 MG/2 ML vial IV SCH ×2 (07:55→20:32)
[2019-04-28] MEDS: aspirin 81mg tablet.DR PO SCH (07:55)
[2019-04-28] MEDS: pantoprazole 40 MG vial IV SCH (07:55)
[2019-04-28] MEDS: thiamine 100mg tablet PO SCH (07:55)
[2019-04-28] MEDS: potassium chloride 10mEq ER tablet PO SCH ×2 (07:55→20:30)
[2019-04-28] MEDS: clopidogrel 75mg tablet PO SCH (07:55)
[2019-04-28] MEDS: atorvastatin 10mg tablet PO SCH (07:56)
[2019-04-28] MEDS ORDERED: carVEDilol 3.125mg tablet PO SCH (08:00)
[2019-04-28] MEDS: K and/or MAG REPLACEMENT MC SCH (08:00)
[2019-04-28] MEDS: carVEDilol 3.125mg tablet PO SCH ×2 (08:40→20:31)
[2019-04-28] MEDS: insulin Lispro (HumaLOG) vial - multi-dose SQ SCH ×3 (08:43→19:07)
--- NOTE | 2019-04-28 10:19 | NUR ---
DM consult: Pt with A1c 9.6 up from 8.4 in February of this year. Per PMH pt refuses to take DM medications. Pt admit with NSTEMI and AMS, metabolic vs toxic encephalopathy. AMS improving however still confused per MD notes, documented as A/O x 1 per physical assessment. DM education not appropriate at this time. Will continue to follow and provide education prior to discharge once stable. Addendum: 04/28/19 at [address] Amended: Links added.
[2019-04-28] MEDS: heparin 25,000 UNIT/250ml bag 250 ML IV SCH (10:56)
[2019-04-28 11:00] VITALS: BP 99/72
[2019-04-28 15:00] VITALS: BP 90/64
[2019-04-28] MEDS ORDERED: LORazepam 1 MG tablet PO PRN (16:30)
[2019-04-28] MEDS ORDERED: LORazepam 2 mg/ml vial IV PRN (16:30)
[2019-04-28 17:02] LABS: PARTIAL THROMBOPLASTIN TIME 57 SECONDS (22-32)
[2019-04-28 18:00] VITALS: BP 111/89
--- NOTE | 2019-04-28 18:44 | NUR ---
Called Pharmacy to clarify the difference in result for APTT and Heparin PTT. He said the results are the same for both.
[2019-04-28] MEDS: insulin glargine (Lantus) pen - multi-dose SQ SCH (21:24)
[2019-04-28 22:00] VITALS: BP 97/73
[2019-04-29 02:00] VITALS: BP 107/83
[2019-04-29 05:44] LABS: BASOPHILS % (AUTO) 0.5 % (0-1); EOSINOPHILS % (AUTO) 0 % (0-6); HEMATOCRIT 38.8 % (42.0-52.0); HEMOGLOBIN 13.3 g/dl (14.0-17.9); LYMPHOCYTES % (AUTO) 28.8 % (21-51); MEAN CORPUSCULAR HEMOGLOBIN 29.3 PG (27.0-31.0); MEAN CORPUSCULAR HGB CONC 34.3 g/dL (33.0-36.5); MEAN CORPUSCULAR VOLUME 85.4 FL (78-98); MEAN PLATELET VOLUME 7.2 FL (7.4-10.4); MONOCYTES % (AUTO) 14.5 % (2-12); NEUTROPHILS % (AUTO) 56.2 % (42-75); PLATELET COUNT 254 X10'3 (140-440); RED BLOOD COUNT 4.54 X10'6 (4.70-6.10); RED CELL DISTRIBUTION WIDTH 14.3 % (11.5-14.5)
--- NOTE | 2019-04-29 05:51 | NUR ---
[place] documentation: I have reviewed and agree with all interventions, assessments performed and documented by Marck - SUSAN.
[2019-04-29 06:00] VITALS: BP 115/83
[2019-04-29 06:05] LABS: ALBUMIN 2.9 G/DL (3.4-5.0); ANION GAP 8 (8-16); BLOOD UREA NITROGEN 23 MG/DL (7-18); BUN/CREATININE RATIO 20.5 (5.4-32.0); CALCIUM 8.1 MG/DL (8.5-10.1); CHLORIDE 94 MMOL/L (99-107); CREATININE 1.12 MG/DL (0.60-1.10); GLUCOSE 132 MG/DL (70-104); POTASSIUM 3.1 MMOL/L (3.5-5.1); SODIUM 130 MMOL/L (135-145); TOTAL CARBON DIOXIDE 28.4 MMOL/L (24-32); eGFR 69 ML/MIN
--- NOTE | 2019-04-29 06:13 | NUR ---
Gave report to Yesy. Answered all the questions.
[2019-04-29] MEDS: K and/or MAG REPLACEMENT MC SCH (06:51)
[2019-04-29 07:17] LABS: MAGNESIUM 2.2 MG/DL (1.5-2.4)
[2019-04-29] MEDS ORDERED: pantoprazole 40mg Tablet.DR PO SCH (07:30)
[2019-04-29] MEDS: potassium chloride 10mEq ER tablet PO SCH ×2 (08:00→19:36)
[2019-04-29] MEDS: clopidogrel 75mg tablet PO SCH (09:14)
[2019-04-29] MEDS: aspirin 81mg tablet.DR PO SCH (09:15)
[2019-04-29] MEDS: atorvastatin 10mg tablet PO SCH (09:15)
[2019-04-29] MEDS: carVEDilol 3.125mg tablet PO SCH ×2 (09:15→19:36)
[2019-04-29] MEDS: furosemide 20 MG/2 ML vial IV SCH ×2 (09:15→19:35)
[2019-04-29] MEDS: potassium CL 10mEq/100ml bag 100 ML IV PRN (09:16)
[2019-04-29] MEDS: thiamine 100mg tablet PO SCH (09:33)
[2019-04-29] MEDS ORDERED: potassium Cl 20 mEq SR tablet PO STA ×2 (09:49→15:59)
--- NOTE | 2019-04-29 09:51 | NUR ---
DR. HSIEH PRESENT TO ROUND, INFORMED HIM THAT PATIENT IS NOT TOLERATING IV POTASSIUM (SAYS IT THOMAS). REQUESTED PO POTASSIUM, ORDER FOR 40MEQ AND TO STOP IV REPLACEMENT. PATIENT PROBABLY GOING HOME LATER TODAY.
--- NOTE | 2019-04-29 09:58 | NUR ---
RECEIVED ORDER TO STOP HEPARIN DRIP, TURNED OFF AT THIS TIME. DR. HSIEH PRESENT AND GAVE ORDER
[2019-04-29 11:00] VITALS: BP 106/75
[2019-04-29] MEDS: insulin Lispro (HumaLOG) vial - multi-dose SQ SCH (13:42)
[2019-04-29] MEDS ORDERED: CLOP75TA35 PO (14:49)
[2019-04-29 15:00] VITALS: BP 97/72
--- NOTE | 2019-04-29 16:47 | NUR ---
printed discharge packet,including information on stroke and diabetes and all f/u appts..Prescription for plavix phoned into [facility] on [address],information on plavix included. Written instruction provided for pt to check blood pressure prior to taking 12.5 mg of coreg,hold if systolic bp below 100. Msg left at home phone for to picking tech pt.
[2019-04-29 18:00] VITALS: BP 111/86
--- NOTE | 2019-04-29 18:00 | NUR ---
Patient in room MED 313. I have received report from NADIR DAVIS and had the opportunity to ask questions and assume patient care.
--- NOTE | 2019-04-29 18:43 | NUR ---
Problems reprioritized. Patient report given, questions answered & plan of care reviewed with SUSAN Higuera.
--- NOTE | 2019-04-29 19:05 | NUR ---
PAGER ID: [phone] MESSAGE: 313 pt Coni is discharging with Coreg 12.5 PO BID but has been only getting Coreg 3.125 PO BID for the last couple days with BP trending in the low 100s and high 90s systolic. Would you like to adjust discharge dose? - Mercy [phone]
[2019-04-29] MEDS ORDERED: CARV3.122 PO (19:10)
--- NOTE | 2019-04-29 20:05 | NUR ---
PT STABLE, IV DC'D, DISCHARGED WITH FAMILY AND WHEELED DOWN IN WHEELCHAIR
--- NOTE | 2019-04-29 20:14 | NUR ---
Called in new prescriptions and adjustments for Coreg to [facility] on [address]. Patient discharged stable in no apparent distress. IV taken out, all belongings on person, family at side, wheeled out to transportation.
[2019-04-30] MEDS ORDERED: LORazepam 2 mg/ml vial IV PRN (16:30)
[2019-04-30] MEDS ORDERED: LORazepam 1 MG tablet PO PRN (16:30)
== END 2019-04-29 20:10 | disposition home or self-care (01) | DRG 45 ==
LOC: ER 14:10 → ED HOLD 16:58 → MED 3N 18:48 → CMPBEDREQ 19:39
PROVIDERS: ADMIT Family Medicine; ATTEND Family Medicine
PROC: B32T1ZZ Computerized Tomography (CT Scan) of Left Pulmonary Artery using Low Osmolar Contrast (ICD-10-PCS; principal; 2019-04-26)
PROC: B3201ZZ Computerized Tomography (CT Scan) of Thoracic Aorta using Low Osmolar Contrast (ICD-10-PCS; 2019-04-26)
PROC: B32S1ZZ Computerized Tomography (CT Scan) of Right Pulmonary Artery using Low Osmolar Contrast (ICD-10-PCS; 2019-04-26)
DX: I63.9 Cerebral infarction, unspecified (principal); I21.4 Non-ST elevation (NSTEMI) myocardial infarction; G92 Toxic encephalopathy; I50.43 Acute on chronic combined systolic (congestive) and diastolic (congestive) heart failure; I11.0 Hypertensive heart disease with heart failure; E87.1 Hypo-osmolality and hyponatremia; E78.5 Hyperlipidemia, unspecified; E11.9 Type 2 diabetes mellitus without complications; Z79.82 Long term (current) use of aspirin; Z79.02 Long term (current) use of antithrombotics/antiplatelets; Z91.14 Patient's other noncompliance with medication regimen; Z79.899 Other long term (current) drug therapy; Z71.6 Tobacco abuse counseling
CPT/HCPCS: 36415; 70450; 70551; 71045; 71275; 80048; 80053; 80305; 80320; 81003; 82140; 82948; 83036; 83735; 83880; 84145; 84484; 85025; 85730; 87040; 87081; 93005; 93306; 93880; 96365; 96375; 97116; 97161; 97530; 99291; C9113; G0378; J1644; J1815; J1940; J3411; J3480; J7030; Q9967

== ENCOUNTER 2021-04-07 15:31 | Emergency (ER) | payer MEDICAID ==
[~2021-04-07] VITALS: Ht 165.1 cm; Wt 84.1 kg
[2021-04-07 15:31] VITALS: BP 192/140
[~2021-04-07 15:31] MED LIST changes: -ASPI-1071 PO; +ASPI81TA49 PO; +CHOL500050 PO; -FOLI1TAB16 PO; -FURO-150 PO; -ISOS30TA6 PO; -LACT1CAP26 PO; -LEVO750T46 PO; +LISI10TA27 PO; -LISI10TA4 PO; -MULT-1179 PO; -POTA10TA36 PO; -SITA100T11 PO; -thiamine tablet PO
[2021-04-07 16:24] LABS: BASOPHILS % (AUTO) 0.5 % (0-1); EOSINOPHILS % (AUTO) 0.5 % (0-6); HEMATOCRIT 42.1 % (42.0-52.0); HEMOGLOBIN 13.9 g/dl (14.0-17.9); LYMPHOCYTES # (AUTO) 1.4 X10'3 (1.1-4.8); MEAN CORPUSCULAR HEMOGLOBIN 30.2 PG (27.0-31.0); MEAN CORPUSCULAR VOLUME 91.6 FL (78-98); MEAN PLATELET VOLUME 6.9 FL (7.4-10.4); MONOCYTES # (AUTO) 0.8 X10'3 (0-0.9); MONOCYTES % (AUTO) 9.8 % (2-12); NEUTROPHILS # (AUTO) 5.6 X10'3 (1.8-7.7); NEUTROPHILS % (AUTO) 71.2 % (42-75); PLATELET COUNT 399 X10'3 (140-440); WHITE BLOOD COUNT 7.8 X10'3 (4.5-11.0)
[2021-04-07 16:36] LABS: ALANINE AMINOTRANSFERASE 27 U/L (12-78); ALBUMIN 2.6 G/DL (3.4-5.0); ALBUMIN/GLOBULIN RATIO 0.6 (1.1-1.5); ALKALINE PHOSPHATASE 74 IU/L (46-116); ANION GAP 11 (8-16); ASPARTATE AMINO TRANSFERASE 21 U/L (10-37); BILIRUBIN,TOTAL 1.7 MG/DL (0.1-1.0); BLOOD UREA NITROGEN 9 MG/DL (7-18); BUN/CREATININE RATIO 8.9 (5.4-32.0); CALCIUM 8.2 MG/DL (8.5-10.1); CHLORIDE 94 MMOL/L (99-107); CREATININE 1.01 MG/DL (0.60-1.10); GLUCOSE 126 MG/DL (70-104); POTASSIUM 3.9 MMOL/L (3.5-5.1); SODIUM 128 MMOL/L (135-145); TOTAL CARBON DIOXIDE 22.8 MMOL/L (24-32); TOTAL PROTEIN 6.7 G/DL (6.4-8.2); eGFR 77 ML/MIN
[2021-04-07] MEDS ORDERED: FURO-150 PO (23:01)
== END 2021-04-07 23:17 | disposition home or self-care (01) ==
LOC: ER 15:31
DX: E87.70 Fluid overload, unspecified (principal); R60.9 Edema, unspecified; I11.0 Hypertensive heart disease with heart failure; E11.9 Type 2 diabetes mellitus without complications; Z79.899 Other long term (current) drug therapy
CPT/HCPCS: 36415; 71045; 80053; 83880; 84484; 85025; 93005; 99285